=== PATIENT | female | born 1960 | race Caucasian/White ===

== ENCOUNTER 2024-09-06 15:33 | Emergency (ER) | payer MEDICAID ==
[2024-09-06 15:43] VITALS: TEMP 98.3
--- NOTE | 2024-09-06 16:07 | XR ---
EXAMINATION TYPE: XR knee complete RT DATE OF EXAM: 09/06/2024 3:57 PM COMPARISON: None CLINICAL INDICATION: Female, 64 years old with history of pain; PHH, pain TECHNIQUE: XR knee complete RT 3 views submitted. FINDINGS: No evidence of any acute osseous pathology or soft tissue swelling. Severe patellofemoral osteophyte formation interspace narrowing with more mild osteophyte formation of the femoral condyle s, tibial plateau and patella. Severe joint space narrowing of the patellofemoral joint. IMPRESSION: 1. No acute osseous pathology. 2. Severe patellofemoral osteoarthritic changes. [facility], , 09/06/2024 4:05 PM
--- NOTE | 2024-09-06 16:09 | ED ---
General Adult HPI - General Chief complaint: Extremity Problem,Nontraumatic Stated complaint: R knee pain Time Seen by Provider: 09/06/24 15:46 Source: patient Mode of arrival: ambulatory Limitations: no limitations - History of Present Illness Initial comments: Dictation was produced using [employer] dictation software. please excuse any grammatical, word or spelling errors. Chief Complaint: 64-year-old female the right leg pain History of Present Illness: Patient 64-year-old female presents with 1 week of right leg pain. States that the pain is around her posterolateral right knee. States hurts when she bears weight. No history of DVT. Denies any calf pain. States that his pain is exacerbated with bearing weight. She states that she does have some history of arthritis of the knees. Denies any injury. The ROS documented in this emergency department record has been reviewed and confirmed by me. Those systems with pertinent positive or negative responses have been documented in the HPI. All other systems are other negative and/or noncontributory. - Related Data Previous Rx's Medication Instructions Recorded HYDROcodone/APAP 5-325MG [[place] 1 tab PO Q6HR PRN 3 Days #12 tab 09/06/24 5-325] Allergies Allergy/AdvReac Type Severity Reaction Status Date / Time shellfish derived [Shellfish] AdvReac Nausea & Verified 09/06/24 15:43 Vomiting Review of Systems ROS Statement: Those systems with pertinent positive or pertinent negative responses have been documented in the HPI. ROS Other: All systems not noted in ROS Statement are negative. Past Medical History Past Medical History: No Reported History Past Surgical History: Adenoidectomy, Tonsillectomy Additional Past Surgical History / Comment(s): gastric bypass, tummy tuck, bilateral arm surgery, ear surgery Past Psychological History: Anxiety Smoking Status: Never smoker Past Alcohol Use History: Occasional Past Drug Use History: None Reported General Exam - General Exam Comments Initial Comments: General: Well-appearing, nontoxic, no acute distress. Head: Normocephalic, atraumatic Eyes: PERRLA, EOMI ENT: Airway patent Chest: Nonlabored breathing Skin: No visual rash, normal skin tone Neuro: Alert and oriented 3 Musculoskeletal: No gross abnormalities Right leg: Palpatory tenderness around the superior posterior lateral calf Limitations: no limitations Course Vital Signs 09/06/24 15:38 Temperature 98.3 F Pulse Rate 81 Respiratory 17 Rate Blood Pressure 151/90 O2 Sat by Pulse 97 Oximetry Medical Decision Making - Medical Decision Making Was pt. sent in by a medical professional or institution (, PA, EMISSIONS TECHNICIAN, urgent care, hospital, or halfway...) When possible be specific @ -No Did you speak to anyone other than the patient for history (EMS, parent, family, police, friend...)? What history was obtained from this source @ -No Did you review nursing and triage notes (agree or disagree)? Why? @ -I reviewed and agree with nursing and triage notes Were old charts reviewed (outside hosp., previous admission, EMS record, old EKG, old radiological studies, urgent care reports/EKG's, halfway records)? Report findings @ -No old charts were reviewed Differential Diagnosis (chest pain, altered mental status, abdominal pain women, abdominal pain men, vaginal bleeding, musculoskeletal, weakness, fever, dyspnea, syncope, headache, dizziness, GI bleed, back pain, seizure, CVA, palpatations, mental health)? @ -Knee fracture, tibial plateau fracture, bursitis EKG interpreted by me (3pts min.). @ -None done X-rays interpreted by me (1pt min.). @ -Knee x-ray shows osteoarthritis, CT interpreted by me (1pt min.). @ -None done U/S interpreted by me (1pt. min.). @ -Venous Doppler shows no DVT to the right lower extremity What testing was considered but not performed or refused? (CT, X-rays, U/S, labs)? Why? @ -None What meds were considered but not given or refused? Why? @ -None Was smoking cessation discussed for >3mins.? @ -No Were there social determinants of health that impacted care today? How? (Homelessness, low income, unemployed, alcoholism, drug addiction, transportation, low edu. Level, literacy, decrease access to med. care, [facility], rehab)? @ -No Was there de-escalation of care discussed even if they declined (Discuss DNR or withdrawal of care, Hospice)? DNR status @ -No What co-morbidities impacted this encounter? (DM, HTN, Smoking, COPD, CAD, Cancer, CVA, ARF, Chemo, Hep., AIDS, mental health diagnosis, sleep apnea, morbid obesity)? @ -None Was patient admitted / discharged? Hospital course, mention meds given and route, prescriptions, significant lab abnormalities, going to OR and other pertinent info. @ -64-year-old female presents with right leg pain. Patient points to the lateral knee/lateral upper calf area. Patient has severe osteoarthritis to the knee. Ultrasounds negative. Patient given analgesics. Reevaluated bedside at 5 1 PM found to be stable condition. Patient discharged. Did you discuss the management of the patient with other professionals (professionals i.e. , PA, EMISSIONS TECHNICIAN, lab, RT, psych nurse, social sciences professor, alpine guide, teacher, founder and chief executive officer, employment case manager)? Give summary @ -No Was critical care preformed (if so, how long)? @ -No Undiagnosed new problem with uncertain prognosis? @ -No Drug Therapy requiring intensive monitoring for toxicity (Heparin, Nitro, Insulin, Cardizem)? @ -No Were any procedures done? @ -No Diagnosis/symptom? Acute, or Chronic, or Acute on Chronic? Uncomplicated (without systemic symptoms) or Complicated (systemic symptoms)? @ -Knee arthritis Side effects of treatment? @ -No Exacerbation, Progression, or Severe Exacerbation? @ -No Poses a threat to life or bodily function? How? (Chest pain, [place], [place], pneumonia, PE, COPD, DKA, ARF, appy, cholecystitis, CVA, Diverticulitis, Homicidal, Suicidal, threat to staff... and all critical care pts) @ -yes Disposition Clinical Impression: Knee pain Disposition: HOME SELF-CARE Condition: Good Instructions (If sedation given, give patient instructions): Knee Pain (ED) Prescriptions: HYDROcodone/APAP 5-325MG [[place] 5-325] 1 tab PO Q6HR PRN 3 Days #12 tab PRN Reason: Severe Pain Is patient prescribed a controlled substance at d/c from ED?: Yes If prescribed controlled substance>3 days was MAPS reviewed?: Prescribed <3 Days Referrals: Nonstaff,Physician [Primary Care Provider] - 1-2 days Time of Disposition: 17:02
[2024-09-06] MEDS: KETOROLAC 15 MG/ML 1 ML VIAL IM STA (16:20)
--- NOTE | 2024-09-06 16:58 | US ---
EXAMINATION TYPE: US venous doppler duplex LE RT DATE OF EXAM: 09/06/2024 4:38 PM COMPARISON: NONE CLINICAL INDICATION: Female, 64 years old with history of leg pain; , Pain TECHNIQUE: The lower extremity deep venous system is examined utilizing real time linear array sonog miles with graded compression, color doppler sonography, and spectral doppler. SIDE PERFORMED: Right FINDINGS: VESSELS IMAGED: Common Femoral Vein Deep Femoral Vein Greater Saphenous Vein * Femoral Vein Popliteal Vein Small Saphenous Vein * Proximal Calf Veins (* superficial vessels) Right Leg: Appears negative for DVT IMPRESSION: No ultrasound evidence for deep venous thrombosis. [facility], , 09/06/2024 4:56 PM
[2024-09-06 17:02] VITALS: BP 146/76; PULSE 79; RESP 18
== END 2024-09-06 17:14 | disposition home or self-care (01) ==
LOC: EC 15:33
DX: M17.0 Bilateral primary osteoarthritis of knee (principal); Z91.013 Allergy to seafood
CPT/HCPCS: 73562; 93971; 99284; 96372; J1885